=== PATIENT | female | born 1980 | race Caucasian/White ===

== ENCOUNTER 2020-09-16 09:13 | Day surgery (SDC) | payer OTHER ==
[~2020-09-16] VITALS: Ht 154.9 cm; Wt 75.3 kg
[~2020-09-16 09:13] MED LIST: FAMO20 PO; LYLEQ0.35 MG PO; PROBIOTIC1 EAC1 PO
--- NOTE | 2020-09-16 13:03 | NUR ---
Dressing to procedure site clean, dry, intact with no visible drainage, swelling, erythema or bruising noted. PATIENT WAKES WITH CARE, NO SIGNS OF DISTRESS.
--- NOTE | 2020-09-16 14:07 | NUR ---
PATIENT OPENED EYES, SLEEPY. GOOD RELEIF WITH NAUSEA MEDS. CONTINUE TO MONITOR AND TX PRN.
--- NOTE | 2020-09-16 14:45 | NUR ---
AMBULATED TO BATHROOM WITH SBA; TOLERATED WELL. STABLE FOR DISCHARGE.
--- NOTE | 2020-09-16 15:25 | NUR ---
Patient up to Ambulate independently. Gait steady. Discharge instructions reviewed with patient. Patient verbalizes understanding. Copy given to patient to take home. Dressing to procedure site clean, dry, intact with no visible drainage, swelling, erythema or bruising noted. Patient States Post-Procedure ride home has been arranged. Discharged via wheelchair to private car for ride home.
--- NOTE | 2020-09-16 15:26 | NUR ---
DC'D IV SITE AT 1505, CATHETER INTACT. NO OTHER IV'S IN PLACE.
== END 2020-09-16 15:06 | disposition home or self-care (01) ==
LOC: ORSCMMR 09:13 → ORD 10:45 → ORSCMMR 10:45
PROVIDERS: Surgery
PROC: BF031ZZ Plain Radiography of Gallbladder and Bile Ducts using Low Osmolar Contrast (ICD-10-PCS; principal; 2020-09-16 10:45)
PROC: 0FT44ZZ Resection of Gallbladder, Percutaneous Endoscopic Approach (ICD-10-PCS; principal; 2020-09-16 10:45)
DX: K81.1 Chronic cholecystitis (principal); E78.5 Hyperlipidemia, unspecified
CPT/HCPCS: 74300; 88304; C1729; J0690; J1100; J1885; J2250; J2405; J2550; J2704; J2710; J2765; J3010; J7120

== ENCOUNTER → 2021-01-22 | Outpatient (CLI) | payer OTHER ==
[2021-01-24 07:09] LABS: HBSAG SCREEN Negative (Negative); HIV SCREEN 4TH GENERATION WRFX Non Reactive (Non Reactive)
[2021-01-27 10:10] LABS: CHLAMYDIA BY NAA Negative (Negative); GONOCOCCUS BY NAA Negative (Negative); TRICH VAG BY NAA Negative (Negative)
== END ==
LOC: LAB SHORT 14:00 → LAB 14:00
PROVIDERS: Registered Nurse Community Health
DX: Z11.3 Encounter for screening for infections with a predominantly sexual mode of transmission (principal); N89.8 Other specified noninflammatory disorders of vagina; Z20.2 Contact with and (suspected) exposure to infections with a predominantly sexual mode of transmission
CPT/HCPCS: 86592; 86803; 87070; 87205; 87340; 87389; 87491; 87591; 87661

== ENCOUNTER 2021-10-06 08:22 | Day surgery (SDC) | payer OTHER ==
[~2021-10-06] VITALS: Ht 154.9 cm; Wt 80.3 kg
--- NOTE | 2021-10-06 11:53 | NUR ---
DR. CHAPPELL AT THE BEDSIDE WHILD PATIENT BEING PREPPED FOR PROCEDURE AND PATIENT IS IN EXTREME PAIN FROM THE LEFT FOOT. DR. CHAPPELL ORDERED TWO TABLETS OF NORCO 5/325 PO NOW FOR PATIENT. THIS WAS GIVEN WITH SMALL AMOUNT OF WATER. AT THE BEDSIDE.
--- NOTE | 2021-10-06 14:35 | NUR ---
PATIENT HAVING RIGHT GROIN PAIN, LIDO WEARING OFF AND GROIN PAIN INCREASING, ASKING FOR TYLENOL PO. PATIENT GIVEN TYLENOL OFF PRN ORDERS, POST OP FROM DR. CHAPPELL FOR RIGHT GROIN PAIN.
--- NOTE | 2021-10-06 15:09 | NUR ---
PATEINT UP OOB TO THE RESTRROM, OFF THE MONITOR AND RIGHT GROIN TENDER BUT PAIN IS IMPROVED FROM EARLIER AFTER TYLENOL.
--- NOTE | 2021-10-06 15:45 | NUR ---
PATIENT IS OFF THE MONITOR, DRESSING SELF. PIV REMOVED AND CATH TIP INTACT AND PRESSURE DRESSING APPLIED. NO BLEEDING NOTED. REVIEWED DISCHARGE INSTRUCTIONS WITH THE PATIENT. ALL BELONGINGS GATHERED. DISCHARGED VIA WHEELCHAIR TO THE IRON STATION ENTRANCE WITH MOTHER DRIVING.
== END 2021-10-06 15:45 | disposition home or self-care (01) ==
LOC: MHTC 08:22
DX: I72.8 Aneurysm of other specified arteries (principal); E78.5 Hyperlipidemia, unspecified; Z87.891 Personal history of nicotine dependence
CPT/HCPCS: 76937; 85347; 99152; 99153; A9270; C1760; C1769; C1887; C1894; J1644; J2250; J3010; J7030; J7040; Q9967

== ENCOUNTER 2021-10-19 11:30 | Emergency (ER) | payer OTHER ==
[~2021-10-19] VITALS: Ht 154.9 cm; Wt 79.4 kg
[2021-10-19 12:27] LABS: BASOPHILS ABSOLUTE AUTO 0.05 K/mm3 (0.00-0.23); BASOPHILS PERCENT AUTO 1 % (0-2); EOSINOPHILS ABSOLUTE AUTO 0.65 K/mm3 (0.00-0.68); EOSINOPHILS PERCENT AUTO 7 % (0-6); Hematocrit 43.4 % (33.0-51.0); IMMATURE GRAN ABSOLUTE AUTO 0.05 K/mm3 (0.00-0.10); IMMATURE GRAN PERCENT AUTO 1 % (0-1); LYMPHOCYTES ABSOLUTE AUTO 2.14 K/mm3 (0.84-5.20); LYMPHOCYTES PERCENT AUTO 24 % (21-46); MONOCYTES ABSOLUTE AUTO 0.87 K/mm3 (0.16-1.47); MONOCYTES PERCENT AUTO 10 % (4-13); Mean Corpuscular HGB 30.7 pg (26.0-34.0); Mean Corpuscular HGB Conc 32.3 g/dL (31.5-36.5); Mean Corpuscular Volume 95 fL (80-100); Mean Platelet Volume 10.4 fL (9.1-12.4); NEUTROPHILS ABSOLUTE AUTO 5.34 K/mm3 (1.96-9.15); NEUTROPHILS PERCENT AUTO 59 % (41-73); Platelet Count 403 K/mm3 (150-400); RDW Coefficient Variation 11.3 % (11.7-14.2); RDW Standard Deviation 39.6 fL (35.1-46.3); Red Blood Cell Count 4.56 M/mm3 (3.80-5.20)
[2021-10-19 12:44] LABS: Source, Urine Clean Catch
[2021-10-19 12:45] LABS: Albumin, Blood 3.6 g/dL (3.4-5.0); Albumin/Globulin Ratio 0.9 (0.8-1.8); Bilirubin, Total 0.2 mg/dL (0.1-1.0); Bun/Creatinine Ratio 24.9 (12.0-20.0); Calcium, Blood 9.4 mg/dL (8.5-10.1); Creatinine, Blood 0.68 mg/dL (0.40-1.00); Globulin, Blood 3.8 g/dL (2.2-4.0); Potassium, Blood 4.2 mmol/L (3.5-5.5); Total Protein, Blood 7.4 g/dL (6.4-8.2)
[2021-10-19 12:47] LABS: Appearance, Urine Clear (Clear); Bilirubin, Urine Neg (Neg); Blood, Urine 2+ (Neg); Color, Urine Yellow (P-Yellow); Glucose Qualitative, Urine Neg (Neg); Ketones, Urine Neg (Neg); Leukocyte Esterase, Urine 2+ (Neg); Nitrite, Urine Neg (Neg); Protein, Urine Neg (Neg); Urobilinogen, Urine NORM (Normal)
[2021-10-19 13:11] LABS: Bacteria Many /hpf; Red Blood Cells, Urine 0-2 /hpf (0-2); Squamous Epithelial Cells Mod /hpf (Few)
[2021-10-19 13:13] LABS: Mucus Light (0-Heavy)
[2021-10-19] MEDS ORDERED: HYDR1TAB94 PO (15:07)
[2021-10-19] MEDS ORDERED: CEPH500 PO (15:07)
== END 2021-10-19 15:30 | disposition home or self-care (01) ==
LOC: ER 11:30
PROVIDERS: Physician Assistant
DX: R10.12 Left upper quadrant pain (principal); Z98.890 Other specified postprocedural states
CPT/HCPCS: 36415; 74177; 80053; 81001; 81025; 85025; J2270; Q9967

== ENCOUNTER → 2022-12-12 | Outpatient (CLI) | payer OTHER ==
[~2022-12-12] MED LIST changes: +CEPH500 PO; +HYDR1TAB94 PO
== END ==
LOC: LAB 11:25 → LAB SHORT 11:25
DX: R19.7 Diarrhea, unspecified (principal)
CPT/HCPCS: 87338

== ENCOUNTER → 2022-12-15 | Outpatient (CLI) | payer OTHER | LOC: LAB SHORT 13:15 → LAB 13:15 | DX: R19.7 Diarrhea, unspecified (principal) | CPT/HCPCS: 87177; 87209 ==

== ENCOUNTER → 2022-12-24 | Outpatient (CLI) | payer OTHER | END | disposition home or self-care (01) | LOC: LAB SHORT 17:56 → LAB 17:56 | DX: R35.0 Frequency of micturition (principal) | CPT/HCPCS: 87086; 87147 ==

== ENCOUNTER → 2023-11-09 | Outpatient (CLI) | payer OTHER | END | disposition home or self-care (01) | LOC: LAB 14:10 → LAB SHORT 14:10 | DX: N39.0 Urinary tract infection, site not specified (principal) | CPT/HCPCS: 87086 ==